=== PATIENT | female | born 1960 | race Caucasian/White ===

== ENCOUNTER 2023-10-23 04:38 | Inpatient (IN) | payer OTHER ==
[2023-10-23] MEDS ORDERED: Senokot S 8.6-50 MG TAB PO PRN (05:20)
[2023-10-23] MEDS ORDERED: Calcium Carbonate 500 MG ChewTAB PO PRN (05:20)
[2023-10-23] MEDS ORDERED: Ondansetron PF 4 MG/2 ML Vial IVP PRN (05:20)
[2023-10-23] MEDS ORDERED: Morphine 4 MG/ML VIAL SLOW IVP PRN (05:26)
[2023-10-23] MEDS: Lactated Ringer's 1,000 ML IV SCH (05:51)
[2023-10-23 05:59] VITALS: BMI 59.2
[2023-10-23 06:58] LABS: #Basophils 0.03 10x3/uL (0.0-0.2); #Eosinphils 0.08 10x3/uL (0.0-0.5); #Monocytes 0.94 10x3/uL (0.0-1.1); #Neutrophils 4.52 10x3/uL (1.5-8.4); %Basophils 0.4 % (0.0-2.0); %Eosinophils 1.2 % (0.0-6.0); %Lymphocytes 17.4 % (18.0-47.0); %Monocytes 13.9 % (0.0-10.0); %Neutrophils 66.8 % (40.0-75.0); Hemoglobin 12.7 g/dL (12.0-15.5); Mean Corpuscular Hemoglobin 28.5 pg (27.0-33.0); Mean Corpuscular Volume 91.9 fL (81.6-98.3); Mean Platelet Volume 11.5 fL (7.4-10.4); Platelet Count 186 10x3/uL (150-450); RBC Distribution Width 14.6 % (11.5-14.5); Red Blood Cell (RBC) Count 4.46 10x6/uL (3.90-5.03); White Blood Cell (WBC) Count 6.8 10x3/uL (3.5-10.5)
[2023-10-23 07:07] LABS: PTT 28.7 sec (22.0-33.0)
[2023-10-23 07:15] LABS: ALT (SGPT) 544 U/L (8-55); AST (SGOT) 464 U/L (5-34); Acetaminophen Less than 10 mcg/mL (Less than 10); Albumin 3.3 g/dL (3.4-4.8); Alkaline Phosphatase 360 U/L (40-110); Anion Gap 17 mmol/L (10-20); BUN (Urea Nitrogen) 7 mg/dL (9.8-20.1); Bilirubin, Total 4.1 mg/dL (0.2-1.2); Calc. Creatinine Clearance 188 mL/min (70-130); Calcium 9.2 mg/dL (7.8-10.44); Carbon Dioxide 24 mmol/L (23-31); Chloride 103 mmol/L (98-107); Cholesterol 145 mg/dl (< 200 Desired); Estimated GFR 97; Globulin 3.5 g/dL (2.4-3.5); Glucose 127 mg/dL (80-115); HDL Cholesterol 48 mg/dL (>60 Neg Risk); LDL Cholesterol, Calculated 86 mg/dL; Lipase 174 U/L (8-78); Potassium 3.9 mmol/L (3.5-5.1); Protein, Total 6.8 g/dL (5.8-8.1); Sodium 140 mmol/L (136-145); Triglycerides 56 mg/dL (Less than 150)
[2023-10-23 07:38] LABS: Thyroid Stimulating Hormone 4.9443 uIU/mL (0.35-4.94)
[2023-10-23] MEDS: Pantoprazole 40 MG VIAL IVP SCH (08:11)
[2023-10-23] MEDS: Enoxaparin 120 MG/0.8 ML SYRINGE SC SCH (08:11)
[2023-10-23 08:45] LABS: HBsAg Index 0.15 S/CO (0-0.99); Hep B Surf Ag NonReactive S/CO (NonReactive)
[2023-10-23] MEDS ORDERED: Magnevist 469MG/ML 20 ML VIAL ONE (11:11)
[2023-10-23 12:53] LABS: Hemoglobin A1c 5.8 % (4.0-6.0)
[2023-10-23 13:25] LABS: HBCM Index 0.08 S/CO (0-0.79); Hep A IgM AB NONREACTIVE (NonReactive); Hep A IgM S/CO 0.18 S/CO (0-0.79); Hep C IgG Ab NONREACTIVE S/CO (NonReactive); Hep C Index 0.09 S/CO (0-0.79); Hepatitis B Core IgM Abs NONREACTIVE S/CO (NonReactive)
[2023-10-23] MEDS: Lorazepam 2 MG/ML VIAL SLOW IVP SCH (15:35)
[2023-10-23] MEDS: Morphine 2 MG/ML VIAL SLOW IVP PRN (17:07)
[2023-10-23 22:07] VITALS: BP 142/63; TEMP 98
== END 2023-10-23 20:10 | disposition still patient (30) | DRG 444 ==
LOC: CSHTELE 04:38
PROVIDERS: ADMIT Student in an Organized Health Care Education/Training Program; ATTEND Student in an Organized Health Care Education/Training Program
DX: K80.50 Calculus of bile duct without cholangitis or cholecystitis without obstruction (principal); K85.90 Acute pancreatitis without necrosis or infection, unspecified; Z68.43 Body mass index [BMI] 50.0-59.9, adult; K76.0 Fatty (change of) liver, not elsewhere classified; I10 Essential (primary) hypertension; E66.01 Morbid (severe) obesity due to excess calories; I48.0 Paroxysmal atrial fibrillation; G47.33 Obstructive sleep apnea (adult) (pediatric); K21.9 Gastro-esophageal reflux disease without esophagitis; E03.9 Hypothyroidism, unspecified; F41.8 Other specified anxiety disorders; R73.9 Hyperglycemia, unspecified; Z88.2 Allergy status to sulfonamides; Z79.899 Other long term (current) drug therapy; Z90.49 Acquired absence of other specified parts of digestive tract; Z90.710 Acquired absence of both cervix and uterus
CPT/HCPCS: 36415; 36416; 74183; 80053; 80061; 80074; 80143; 83036; 83690; 84443; 85025; 85610; 85730; 80307; A9579; J1650; J2060; J2272; J2470; J7120